=== PATIENT | male | born 1940 | race Caucasian/White ===

== ENCOUNTER 2018-03-10 12:01 | Day surgery (SDC) | payer MEDICARE, MEDICAID ==
[2018-03-09 15:21] LABS: BASOPHILS # (AUTO) 0.1 X10'3 (0-0.2); BASOPHILS % (AUTO) 1.1 % (0-1); EOSINOPHILS # (AUTO) 0.1 X10'3 (0-0.9); EOSINOPHILS % (AUTO) 1.4 % (0-6); HEMOGLOBIN 12.3 g/dl (14.0-17.9); LYMPHOCYTES # (AUTO) 1.4 X10'3 (1.1-4.8); LYMPHOCYTES % (AUTO) 13.8 % (21-51); MEAN CORPUSCULAR HEMOGLOBIN 29.4 PG (27.0-31.0); MEAN CORPUSCULAR HGB CONC 34.2 % (33.0-36.5); MEAN CORPUSCULAR VOLUME 86.1 FL (78-98); MEAN PLATELET VOLUME 7.7 FL (7.4-10.4); MONOCYTES # (AUTO) 0.6 X10'3 (0-0.9); MONOCYTES % (AUTO) 6.1 % (2-12); NEUTROPHILS # (AUTO) 7.9 X10'3 (1.8-7.7); NEUTROPHILS % (AUTO) 77.6 % (42-75); PLATELET COUNT 311 X10'3 (140-440); RED BLOOD COUNT 4.19 X10'6 (4.70-6.10); RED CELL DISTRIBUTION WIDTH 14.1 % (11.5-14.5); WHITE BLOOD COUNT 10.2 X10'3 (4.5-11.0)
[2018-03-09 15:32] LABS: PARTIAL THROMBOPLASTIN TIME 29 SECONDS (22-32); PROTHROMBIN TIME 10.4 SECONDS (9.0-12.0)
[2018-03-10] VITALS (11 sets, daily range): BP systolic 117–203; BP diastolic 57–143
[~2018-03-10] VITALS: Ht 170.2 cm; Wt 63.1 kg
[~2018-03-10 12:01] MED LIST: ALBU8.5H8 IH; ATEN25TA PO; BUDE10.2 INH; CHLO25TA2 PO; DILT120T3 PO; FLO0.4C PO; LOSA100T28 PO; NICO1PAT36 TP; OMEP20TA23 PO; POTA10TA10 PO; SPIIN IH
[2018-03-10] MEDS ORDERED: diphenhydrAMINE 25mg capsule PO PRN (12:20)
[2018-03-10] MEDS ORDERED: normal saline 1000ml 1,000 ML IV SCH (12:20)
[2018-03-10] MEDS ORDERED: LORazepam 0.5 MG tablet PO PRN (12:20)
[2018-03-10] MEDS ORDERED: ASPI81TA52 PO (12:23)
[2018-03-10] MEDS ORDERED: ATOR10TA PO (12:23)
[2018-03-10] MEDS ORDERED: CLOP75TA15 PO (12:23)
[2018-03-10 13:43] LABS: ALBUMIN 3.3 G/DL (3.4-5.0); ANION GAP 9 (8-16); BLOOD UREA NITROGEN 13 MG/DL (7-18); BUN/CREATININE RATIO 12.4 (5.4-32.0); CALCIUM 8.6 MG/DL (8.5-10.1); CHLORIDE 98 MMOL/L (99-107); CREATININE 1.05 MG/DL (0.60-1.10); GLUCOSE 97 MG/DL (70-104); POTASSIUM 4.3 MMOL/L (3.5-5.1); SODIUM 133 MMOL/L (135-145); TOTAL CARBON DIOXIDE 26.3 MMOL/L (24-32); eGFR 69 ML/MIN
[2018-03-10] MEDS ORDERED: LIDOcaine 1% 30ml preserv. free vial ONE (15:41)
[2018-03-10] MEDS ORDERED: heparin 1,000unit/ml 10ml vial 0 ML ONE (15:41)
[2018-03-10] MEDS ORDERED: iohexol 350MG/ML 100ml bottle IV ONE (15:42)
[2018-03-10] MEDS ORDERED: iohexol 350 MG/ML 50ML vial IV ONE (15:42)
[2018-03-10] MEDS ORDERED: atropine 0.1mg/ml 10ml syringe ONE (15:43)
[2018-03-10] MEDS ORDERED: DOPamine 400mg/D5W 250ml 0 ML IV ONE (15:43)
[2018-03-10] MEDS ORDERED: hydrALAZINE 20mg/ml inj. IV ONE ×2 (16:50→19:00)
[2018-03-10] MEDS ORDERED: diltiazem 5mg/ml 5ml inj. IV ONE (16:58)
[2018-03-10] MEDS ORDERED: HYDROmorphone 1 mg/ml syringe ONE (17:01)
[2018-03-10] MEDS ORDERED: ondansetron/PF 4mg/2ml inj IV PRN (17:55)
[2018-03-10] MEDS ORDERED: nitroGLYCERIN 0.4mg SUBLingual tab SL PRN (17:55)
[2018-03-10] MEDS ORDERED: OXAZEpam 15mg capsule PO PRN (17:55)
[2018-03-10] MEDS ORDERED: proCHLORperazine 10 MG/2 ml inj IV PRN (17:55)
[2018-03-10] MEDS ORDERED: HYDROcodone/acetaminophen 5mg/325mg tablet PO PRN (17:55)
[2018-03-10] MEDS ORDERED: HYDROcodone/acetaminophen 10/325mg tab PO PRN (17:55)
[2018-03-10] MEDS ORDERED: metoprolol tartrate 1mg/ml inj IV ONE (19:00)
[2018-03-10] MEDS ORDERED: albuterol 2.5 MG/3 ML nebule NEB PRN (19:40)
[2018-03-10] MEDS ORDERED: diltiazem SR 60mg capsule (twice daily) PO SCH (20:00)
[2018-03-10] MEDS: budesonide 0.5mg/2ml UD nebule IH SCH (20:00)
[2018-03-11 03:00] VITALS: BP 157/72
[2018-03-11 07:00] VITALS: BP 192/86
[2018-03-11] MEDS ORDERED: ipratropium 0.5 MG/2.5ML nebule IH SCH (07:00)
[2018-03-11 08:00] VITALS: BP 172/73
[2018-03-11] MEDS ORDERED: potassium chloride 10mEq ER tablet PO SCH (08:00)
[2018-03-11] MEDS ORDERED: clopidogrel 75mg tablet PO SCH (08:00)
[2018-03-11] MEDS ORDERED: aspirin 81mg tablet.DR PO SCH (08:00)
[2018-03-11] MEDS ORDERED: losartan 50mg tablet PO SCH (08:00)
[2018-03-11] MEDS ORDERED: atorvastatin 10mg tablet PO SCH (08:00)
[2018-03-11] MEDS ORDERED: diltiazem SR 60mg capsule (twice daily) PO SCH (08:00)
[2018-03-11] MEDS ORDERED: atenolol 25mg tablet PO SCH (08:00)
[2018-03-11] MEDS: budesonide 0.5mg/2ml UD nebule IH SCH (08:14)
[2018-03-11] MEDS ORDERED: hydrALAZINE 20mg/ml inj. IV ONE (10:20)
[2018-03-11] MEDS ORDERED: atenolol 25mg tablet PO ONE (10:20)
== END 2018-03-11 12:15 | disposition home or self-care (01) ==
LOC: SSTAY O 12:01 → PCU 3S 20:40 → SSTAY O 03-11 12:15
PROVIDERS: ATTEND Internal Medicine Interventional Cardiology
DX: I65.23 Occlusion and stenosis of bilateral carotid arteries (principal); I10 Essential (primary) hypertension; I70.1 Atherosclerosis of renal artery; F17.210 Nicotine dependence, cigarettes, uncomplicated; E78.4 Other hyperlipidemia; N40.0 Benign prostatic hyperplasia without lower urinary tract symptoms; J44.9 Chronic obstructive pulmonary disease, unspecified; K21.9 Gastro-esophageal reflux disease without esophagitis; F41.8 Other specified anxiety disorders; Z72.89 Other problems related to lifestyle; Z79.01 Long term (current) use of anticoagulants; Z95.828 Presence of other vascular implants and grafts; Z86.73 Personal history of transient ischemic attack (TIA), and cerebral infarction without residual deficits; Z79.82 Long term (current) use of aspirin; Z79.899 Other long term (current) drug therapy; Z98.890 Other specified postprocedural states; Z83.3 Family history of diabetes mellitus
CPT/HCPCS: 36222; 36415; 80048; 85025; 85610; 85730; 87070; 93005; 94640; 94760; A4315; A6257; C1760; C1769; C1894; J0360; J1170; J1644; J3490; J7030; J7626; Q0163; Q9967; 36221; A4620; J0461; J1265

== ENCOUNTER 2020-06-30 11:39 | Emergency (ER) | payer MEDICARE, MEDICAID ==
[~2020-06-30] VITALS: Ht 182.9 cm; Wt 74.1 kg
[~2020-06-30 11:39] MED LIST changes: +ASPI81TA52 PO; +ATOR10TA PO; -CHLO25TA2 PO; +CLOP75TA15 PO; -FLO0.4C PO; -LOSA100T28 PO; +LOSA100T57 PO; -NICO1PAT36 TP; -OMEP20TA23 PO; -SPIIN IH
[2020-06-30 11:45] VITALS: BP 116/55
--- NOTE | 2020-06-30 11:55 | NUR ---
vance nazario in parking lot [phone]
[2020-06-30] MEDS ORDERED: TRAM50TA2 PO (13:30)
== END 2020-06-30 13:45 | disposition home or self-care (01) ==
LOC: ER 11:40
DX: M25.562 Pain in left knee (principal); J44.9 Chronic obstructive pulmonary disease, unspecified; I10 Essential (primary) hypertension; Z79.899 Other long term (current) drug therapy; W18.39XA Other fall on same level, initial encounter; Y93.89 Activity, other specified; Y92.89 Other specified places as the place of occurrence of the external cause; Y99.8 Other external cause status
CPT/HCPCS: 73564; 99283

== ENCOUNTER 2020-08-02 13:43 | Outpatient (CLI) | payer MEDICARE, MEDICAID ==
[~2020-08-02] VITALS: Ht 175.3 cm; Wt 63.5 kg
[2020-08-02 15:08] LABS: CLARITY,URINE SLIGHTLY CLOUDY (Clear); COLOR,URINE YELLOW (Yellow); GLUCOSE, URINE NEGATIVE (Neg); KETONES,URINE NEGATIVE (Neg); LEUKOCYTE ESTERASE ,URINE MODERATE (Neg); NITRITES, URINE POSITIVE (Neg); OCCULT BLOOD,URINE NEGATIVE (Neg); PROTEIN,URINE NEGATIVE (Neg); UA COLLECTION TYPE NON-SPECIFIED; UROBILINOGEN,URINE 0.2 E.U/dL (0.2-1.0)
[2020-08-02 15:14] LABS: BASOPHILS # (AUTO) 0.1 X10'3 (0-0.2); BASOPHILS % (AUTO) 1.2 % (0-1); EOSINOPHILS # (AUTO) 0.2 X10'3 (0-0.9); EOSINOPHILS % (AUTO) 1.9 % (0-6); LYMPHOCYTES # (AUTO) 1.1 X10'3 (1.1-4.8); LYMPHOCYTES % (AUTO) 13.4 % (21-51); MEAN CORPUSCULAR HEMOGLOBIN 29.2 PG (27.0-31.0); MEAN CORPUSCULAR HGB CONC 33.6 g/dL (33.0-36.5); MEAN CORPUSCULAR VOLUME 86.9 FL (78-98); MEAN PLATELET VOLUME 7.4 FL (7.4-10.4); MONOCYTES # (AUTO) 0.7 X10'3 (0-0.9); MONOCYTES % (AUTO) 8.9 % (2-12); NEUTROPHILS # (AUTO) 6.1 X10'3 (1.8-7.7); NEUTROPHILS % (AUTO) 74.6 % (42-75); PRE OP HEMATOCRIT 40.8 % (42.0-52.0); PRE OP HEMOGLOBIN 13.7 g/dL (14.0-17.9); PRE OP PLATELET COUNT 293 X10'3 (140-440); RED BLOOD COUNT 4.69 X10'6 (4.70-6.10); RED CELL DISTRIBUTION WIDTH 14.5 % (11.5-14.5)
[2020-08-02 15:16] LABS: MUCUS STRANDS FEW /LPF (Neg); SQUAMOUS EPITHELIAL CELL,UR MODERATE /LPF (FEW)
[2020-08-02 15:17] LABS: BACTERIA,URINE 2+ /HPF (Neg); RBC,URINE 0-2 /HPF (0-2)
[2020-08-02 15:18] LABS: AMORPHOUS PHOSPHATES 2+
[2020-08-02 15:24] LABS: PRE OP INR 1.1 INR; PRE OP PROTIME 11.1 SECONDS (9.0-12.0)
[2020-08-02 15:25] LABS: ALBUMIN 3.8 G/DL (3.4-5.0); ALBUMIN/GLOBULIN RATIO 0.9 (1.1-1.5); ALKALINE PHOSPHATASE 106 IU/L (46-116); BLOOD UREA NITROGEN 21 MG/DL (7-18); BUN/CREATININE RATIO 16.9 (5.4-32.0); CHLORIDE 104 MMOL/L (99-107); CREATININE 1.24 MG/DL (0.60-1.10); PRE OP ALT 18 U/L (30-65); PRE OP ANION GAP 8 (8-16); PRE OP AST 13 U/L (10-37); PRE OP BILIRUB, TOTAL 0.4 MG/DL (0.0-1.0); PRE OP GLUCOSE 100 MG/DL (70-104); PRE OP SODIUM 142 MMOL/L (135-145); TOTAL CARBON DIOXIDE 30.1 MMOL/L (24-32); eGFR 56 ML/MIN
[2020-08-02 15:29] LABS: CALCIUM 8.8 MG/DL (8.5-10.1)
[2020-08-02] MEDS ORDERED: DOCU-22 PO (16:17)
[2020-08-02] MEDS ORDERED: FLO0.4C PO (16:17)
[2020-08-02] MEDS ORDERED: LOSA25TA96 PO (16:17)
[2020-08-02] MEDS ORDERED: SERT100T10 PO (16:17)
[2020-08-02] MEDS ORDERED: MINO2.5T19 PO (16:17)
[2020-08-02] MEDS ORDERED: FURO20TA4 PO (16:19)
[2020-08-08] MEDS ORDERED: DILT120C20 PO (11:01)
[2020-08-09] MEDS ORDERED: ringers solution, lacted 1,000 ML IV SCH (05:00)
[2020-08-09] MEDS ORDERED: ceFAZolin 2gm in dextrose, iso 50 ML IV ONE (05:30)
[2020-08-09] MEDS ORDERED: famotidine 20mg tablet PO ONE (05:30)
[2020-08-09] MEDS ORDERED: albuterol 2.5 MG/3 ML nebule NEB ONE (05:30)
[2020-08-09] MEDS ORDERED: phenylephrine inj 50 MG in normal saline 250ml IV soln 245 ML IV PRN (05:45)
[2020-08-09] MEDS ORDERED: nitroPRUSSIDE in NS 100 ML IV PRN (05:45)
[2020-08-09] MEDS ORDERED: heparin 10,000 units/1 ML INJ ONE (06:09)
[2020-08-09] MEDS ORDERED: LIDOcaine 1% (10mg/ml) 2ml vial ONE (06:09)
== END 2020-08-02 23:59 | disposition home or self-care (01) ==
LOC: PRE-OP 13:43 → EDSTATUS 08-09 09:45
PROVIDERS: ATTEND Surgery
DX: Z01.812 Encounter for preprocedural laboratory examination (principal); I65.22 Occlusion and stenosis of left carotid artery; I10 Essential (primary) hypertension; F17.210 Nicotine dependence, cigarettes, uncomplicated; Z20.828 Contact with and (suspected) exposure to other viral communicable diseases; Z79.899 Other long term (current) drug therapy
CPT/HCPCS: 36415; 71046; 80053; 81001; 85025; 85610; 85730; 86885; 86900; 86901; 86920; 87081; 87088; 87635; 93005; J1644; J2001; J2370; J7050; J7120

== ENCOUNTER 2024-05-03 10:05 | Outpatient (CLI) | payer MEDICARE, MEDICAID ==
[~2024-05-03 10:05] MED LIST changes: +ALBU8.5H17 IH; -ALBU8.5H8 IH; -ASPI81TA52 PO; -ATEN25TA PO; -BUDE10.2 INH; -CLOP75TA15 PO; +DILT120C20 PO; -DILT120T3 PO; +DOCU-22 PO; +FLO0.4C PO; +FURO20TA4 PO; +LOSA-415 PO; -LOSA100T57 PO; +MINO2.5T19 PO; +POTA-188 PO; -POTA10TA10 PO; +SERT-434 PO
[2024-05-03 10:49] LABS: ALBUMIN 2.6 G/DL (3.4-5.0); ANION GAP 7 (8-16); BLOOD UREA NITROGEN 19 MG/DL (7-18); BUN/CREATININE RATIO 17.9 (10.0-20.0); CALCIUM 8.9 MG/DL (8.5-10.1); CHLORIDE 103 MMOL/L (99-107); CREATININE 1.06 MG/DL (0.60-1.10); GLUCOSE 105 MG/DL (70-104); POTASSIUM 4.2 MMOL/L (3.5-5.1); SODIUM 138 MMOL/L (135-145); TOTAL CARBON DIOXIDE 28.5 MMOL/L (24-32); eGFR 67 ML/MIN
[2024-05-03] MEDS ORDERED: iohexol 350MG/ML 100ml bottle IV ONE (11:10)
== END 2024-05-03 23:59 | disposition home or self-care (01) ==
LOC: RAD 10:05
PROVIDERS: ATTEND Surgery
DX: Z01.818 Encounter for other preprocedural examination (principal); I65.23 Occlusion and stenosis of bilateral carotid arteries; I70.0 Atherosclerosis of aorta; J84.10 Pulmonary fibrosis, unspecified; J98.11 Atelectasis
CPT/HCPCS: 36415; 70498; 80048; Q9967